=== PATIENT | male | born 1960 | race Caucasian/White ===

== ENCOUNTER 2016-05-19 11:18 | Emergency (ER) | payer OTHER ==
[2016-05-19 11:32] VITALS: BP 135/88; PULSE 80; TEMP 98.2; BMI 31.6
--- NOTE | 2016-05-19 12:45 | PDOC ---
History of Present Illness - General Chief Complaint: Eye Problem Stated Complaint: EYE PROBLEM Time Seen by Provider: 05/19/16 12:05 History Source: Patient - History of Present Illness Timing/Duration: other Associated Symptoms: denies: headaches Past History - Past Medical History Allergies/Adverse Reactions: Allergies Allergy/AdvReac Type Severity Reaction Status Date / Time No Known Allergies Allergy Unverified 05/19/16 11:30 Home Medications: Ambulatory Orders NK [No Known Home Medication] 05/25/14 - Surgical History Cholecystectomy: Yes - Psycho/Social/Smoking Cessation Hx Anxiety: No Suicidal Ideation: No Smoking History: Never smoked Have you smoked in the past 12 months: No Information on smoking cessation initiated: No Hx Alcohol Use: No Drug/Substance Use Hx: No Substance Use Type: None Review of Systems - Review of Systems HEENTM: No: Eye Pain, Blurred Vision, Tearing, Recent change in vision *Physical Exam - Vital Signs Last Vital Signs Temp Pulse Resp BP Pulse Ox 98.2 F 80 18 135/88 100 05/19/16 11:30 05/19/16 11:30 05/19/16 11:30 05/19/16 11:30 05/19/16 11:30 - Physical Exam General Appearance: Yes: Appropriately Dressed. No: Apparent Distress HEENT: positive: Normal Voice, Other (flat, well-demarcated area of erythema to medial canthus of R eye, c/w subconj hemorrhage) Neck: positive: Supple Respiratory/Chest: negative: Respiratory Distress Integumentary: positive: Dry, Warm Neurologic: positive: Fully Oriented, Alert, Normal Mood/Affect Medical Decision Making - Medical Decision Making 05/19/16 12:31 55 yo male, no sig hx, p/w R conjunctival erythema that pt awoke with 3 days ago. No eye pain, visual changes, photophobia, tearing, discharge or foreign body sensation. Patient denies any trauma. No recent vomiting, coughing or sneezing. Not on any blood thinners. Patient well-appearing and stable with c subconjunctival hemorrhage to the medial canthus off R eye. No intervention needed in ED. DC with reassurance that symptoms will resolve over the next 2-3 weeks. Reasons to return discussed with patient 05/19/16 12:51 05/19/16 12:56 *DC/Admit/Observation/Transfer Diagnosis at time of Disposition: Subconjunctival hemorrhage of right eye - Discharge Dispostion Disposition: HOME Condition at time of disposition: Good - Patient Instructions Printed Discharge Instructions: DI for Subconjunctival Hemorrhage Additional Instructions: Tiene sangrado de los vasos sanguneos en el [place]. No es [place] enfermedad grave por lo general y se resuelve en 2-3 semanas Print Language: TONGAN
== END 2016-05-19 12:36 | disposition home or self-care (01) ==
LOC: JERFT 11:18
DX: H11.31 Conjunctival hemorrhage, right eye (principal)
CPT/HCPCS: 99281-25